=== PATIENT | male | born 1955 | race American Indian/Alaskan Native ===

== ENCOUNTER 2017-12-15 11:04 | Emergency (ER) | payer OTHER ==
--- NOTE | 2017-12-15 11:48 | Cat Scan Report ---
CT HEAD WITHOUT CONTRAST: 12/15/17 11:04:00 CLINICAL: Left arm weakness and facial droop. Fell 2 days ago. TECHNIQUE: 2.5-mm noncontrast scans. COMPARISON:10/19/13 FINDINGS: An oval slightly irregularly shaped cystic mass has developed in the right frontal lobe since the previous exam. It measures 7.5 x 6.0 x 6.1 cm. There is mass effect with shift of the midline. The anterior falx is shifted by 5 mm the mass extends across the midline by approximately 2.4 cm. It has a smooth thin wall and measures approximately 13 Hounsfield units in density. There is mass effect on the adjacent brain with minimal adjacent vasogenic edema. Prominent bilateral lesser parietal and occipital lobe white matter hypodensities and enlargement of the occipital lobes and lateral ventricle bodies. The frontal horns are small. The temporal horns are mildly dilated and the fourth ventricle is normal size. No evidence of hemorrhage. The sinuses are clear. Normal orbits and soft tissues. The calvarium and skull base are intact. No fracture. IMPRESSION: 1. A 7.5 cm intra-axial cystic mass of the right frontal lobe which is new compared to the previous exam. The differential includes cystic tumor, arachnoid cyst and less likely remote hematoma or abscess. The pattern is not typical of old ischemia suppose it would be a consideration. 2. Significant mass effect upon the right frontal lobe and significant displacement of midline brain structures in the right frontal lobe mass. 3. Recommend MRI brain without and with contrast for further evaluation. 4. No evidence of traumatic injury.
[2017-12-15 12:18] LABS: Basophils # (Auto) 0.1 K/mm3 (0.0-0.1); Basophils % (Auto) 1.3 % (0.0-1.8); Eosinophils # (Auto) 0.1 K/mm3 (0.0-0.4); Eosinophils % (Auto) 1.3 % (0.0-4.3); Hemoglobin 13.2 gm/dl (11.8-15.2); Lymphocytes # (Auto) 1.8 K/mm3 (1.2-5.4); Lymphocytes % (Auto) 23.6 % (13.4-35.0); Mean Corpuscular HGB Conc 32 % (32-34); Mean Corpuscular Hemoglobin 28 pg (28-32); Mean Corpuscular Volume 86 fl (84-94); Monocytes # (Auto) 0.7 K/mm3 (0.0-0.8); Monocytes % (Auto) 8.8 % (0.0-7.3); Platelet Count 402 K/mm3 (140-440); Red Blood Count 4.77 M/mm3 (3.65-5.03); Red Cell Distribution Width 17.6 % (13.2-15.2)
[2017-12-15 12:29] LABS: INR 0.92 (0.87-1.13)
[2017-12-15 12:30] LABS: Partial Thromboplastin Time 33.1 Sec. (24.2-36.6)
[2017-12-15 13:12] LABS: BUN/Creatinine Ratio 20; Blood Urea Nitrogen 16 mg/dL (9-20); Calcium 9.1 mg/dL (8.4-10.2); Hemolysis Index 1
--- NOTE | 2017-12-15 13:16 | Emergency Department Report ---
HPI - General Chief Complaint: Neuro Symptoms/Deficit Time Seen by Provider: 12/15/17 13:00 - HPI HPI: Husain 26 The patient is a 62-year-old male presenting with a chief complaint of left- sided weakness. Family states the patient suffered a fall 3-4 days ago and was noted to have slurred speech yesterday and this morning. One another family member came to check on the patient is morning she noticed that he was not moving his left side as well as the right. There is no history of dysphagia. Patient denies headache nausea or vomiting. Location: [See above] Duration: [See above] Quality: [See above] Severity: [See above] Modifying factors: [see above] Context: [see above] Mode of transportation: [not driving] ED Past Medical Hx - Past Medical History Hx Hypertension: Yes (Does not take meds., per EMS.) Hx of Cancer: Yes (colon CA (2014), lung mass (2013)) Hx Seizures: Yes Additional medical history: Lung mass - Surgical History Past Surgical History?: No Additional Surgical History: Lung mass removal. Partial colectomy - Family History Family history: no significant - Social History Smoking Status: Current Every Day Smoker (1 pack per day) Substance Use Type: Alcohol (every other day) - Medications Home Medications: Home Medications Medication Instructions Recorded Confirmed Last Taken Type Potassium Chloride [K-Dur] 20 meq PO QDAY #20 tablet 10/19/13 Unknown Rx levETIRAcetam [Keppra] 500 mg PO BID #60 tablet 10/19/13 Unknown Rx ED Review of Systems ROS: Stated complaint: R/O CVA Other details as noted in HPI Constitutional: weakness Gastrointestinal: denies: nausea, vomiting Neurological: weakness. denies: headache, numbness Physical Exam - Physical Exam Vital Signs: Vital Signs 12/15/17 11:08 Temperature 98.6 F Pulse Rate 90 Respiratory 16 Rate Blood Pressure 115/83 O2 Sat by Pulse 89 Oximetry Vital Signs 12/15/17 12/15/17 11:08 13:13 Temperature 98.6 F Pulse Rate 90 65 Respiratory 16 18 Rate Blood Pressure 115/83 Blood Pressure 132/88 [Left] O2 Sat by Pulse 89 93 Oximetry Physical Exam: GENERAL: The patient is well-developed well-nourished male lying on stretcher not appearing to be in acute distress. HEENT: Normocephalic. Atraumatic. Extraocular motions are intact. Patient has moist mucous membranes. NECK: Supple. Trachea midline CHEST/LUNGS: Clear to auscultation. There is no respiratory distress noted. HEART/CARDIOVASCULAR: Regular. There is no tachycardia. There is no gallop rub or murmur. ABDOMEN: Abdomen is soft, nontender. Patient has normal bowel sounds. There is no abdominal distention. SKIN: There is no rash. There is no edema. There is no diaphoresis. NEURO: The patient is awake, alert, and oriented. The patient is cooperative. Cranial nerves II through XII grossly intact with the exception of tongue deviating to the right. The patient has normal speech. Slight left pronator drift. Patient exhibits some difficulty raising left lower extremity up off the bed. Normal sensation throughout MUSCULOSKELETAL: There is no evidence of acute injury. NIHSS= 2 LOC a. Alert= 0 Not alert but arousable to minor stimuli=1 Not alert requires repeated or strong stimuli to move= 2 Responds only reflex motor or unresponsive=3 b. asks month and age answers both correctly= 0 answers one correctly= 1 answers neither correctly= 2 Best Gaze normal= 0 abnormal in one or both but forced deviation or total paresis absent= 1 forced deviation or total gaze paresis= 2 Visual no visual loss= 0 partial hemianopia= 1 complete hemianopia= 2 bilateral hemianopia= 3 Facial Palsy normal= 0 minor paralysis= 1 partial paralysis= 2 complete paralysis= 3 Motor Arm no drift= 0 (+)drift before 10 secs but doesnt hit bed= 1 some effort against gravity= 2 no effort against gravity= 3 no movement= 4 Motor leg no drift= 0 (+)drift before 5 secs but doesnt hit bed= 1 drifts to bed before 5 secs= 2 no effort against gravity= 3 no movement= 4 Limb ataxia absent=0 present in one limb= 1 present in two limbs= 2 Sensory normal= 0 mild sensory loss= 1 severe (unaware of being touched)= 2 Best language mild/some loss of fluency= 1 severe= 2 mute= 3 Dysarthria normal= 0 slurs some words= 1 severe/unintelligible= 2 Extinction and Inattention no abnormality= 0 visual, tactile, auditory or personal inattention= 1 profound (doesnt recognize own hand or orients to only one side= 2 ED Course Vital Signs 12/15/17 11:08 Temperature 98.6 F Pulse Rate 90 Respiratory 16 Rate Blood Pressure 115/83 O2 Sat by Pulse 89 Oximetry - Consultations Consultation #1: 12/15/17 13:17 [facility] transfer line called-states there are no neuro beds available Consultation #2: 12/15/17 13:17 [facility] transfer line called 12/15/17 13:33 Case discussed with [facility] neurosurgeon Dr. Quarles- will accept patient in transfer. Recommends giving Keppra 1 g IV and Decadron 6 mg IV ED Medical Decision Making - Lab Data Result diagrams: 12/15/17 11:58 12/15/17 11:58 Laboratory Tests 12/15/17 12/15/17 12/15/17 11:12 11:58 11:58 WBC 7.5 RBC 4.77 Hgb 13.2 Hct 41.0 MCV 86 MCH 28 MCHC 32 RDW 17.6 H Plt Count 402 Lymph % (Auto) 23.6 Cherry % (Auto) 8.8 H Eos % (Auto) 1.3 Baso % (Auto) 1.3 Lymph # 1.8 Cherry # 0.7 Eos # 0.1 Baso # 0.1 Seg Neutrophils % 65.0 Seg Neutrophils # 4.9 PT 12.8 INR 0.92 APTT 33.1 Thrombin Time Sodium Potassium Chloride Carbon Dioxide Anion Gap BUN Creatinine Estimated GFR BUN/Creatinine Ratio Glucose POC Glucose 78 Calcium Troponin T 12/15/17 12/15/17 11:58 11:58 WBC RBC Hgb Hct MCV MCH MCHC RDW Plt Count Lymph % (Auto) Cherry % (Auto) Eos % (Auto) Baso % (Auto) Lymph # Cherry # Eos # Baso # Seg Neutrophils % Seg Neutrophils # PT INR APTT Thrombin Time 15.8 Sodium 142 Potassium 3.7 Chloride 101.2 Carbon Dioxide 25 Anion Gap 20 BUN 16 Creatinine 0.8 Estimated GFR > 60 BUN/Creatinine Ratio 20 Glucose 124 H POC Glucose Calcium 9.1 Troponin T < 0.010 - Radiology Data Radiology results: report reviewed (CT head), image reviewed (CT head) CT head (read by radiologist)-a 7.5 cm intra-axial cystic mass of the right frontal lobe which is new compared to the previous exam. The differential includes cystic tumor, arachnoid cyst less likely remote hematoma or abscess. The pattern is not typical of old ischemia suppose it would be a consideration. Significant mass effect upon the right frontal lobe and significant displacement of midline brain structures in the right frontal lobe mass. Recommend MRI brain without and with contrast for further evaluation. No evidence of dramatic injury. - Differential Diagnosis brain mass, CVA Critical care attestation.: If time is entered above; I have spent that time in minutes in the direct care of this critically ill patient, excluding procedure time. ED Disposition Clinical Impression: Brain mass, Left-sided weakness Disposition: DC/TX-70 ANOTHER TYPE HLTHCARE Is pt being admited?: No Does the pt Need Aspirin: No Condition: Serious Time of Disposition: 13:36 (awaiting transport)
[2017-12-15] MEDS ORDERED: KEPPRA 1,000 MG/NS 0.75% 100ML 1,000 MG/100 ML BAG IV ONE (13:32)
[2017-12-15] MEDS ORDERED: DECADRON IV ONE (13:32)
[2017-12-15 19:08] VITALS: BP 150/94
== END 2017-12-15 19:00 | disposition other institution (70) ==
LOC: ED 11:04
DX: G93.9 Disorder of brain, unspecified (principal); M62.81 Muscle weakness (generalized); I10 Essential (primary) hypertension; R56.9 Unspecified convulsions; Z85.038 Personal history of other malignant neoplasm of large intestine; F17.210 Nicotine dependence, cigarettes, uncomplicated
CPT/HCPCS: 36415; 70450; 80048; 82962; 84484; 85025; 85610; 85670; 85730; 93005; 93010; 96374; 96375; 99285; J1100; J1953

== ENCOUNTER 2019-03-24 16:15 | Emergency (ER) | payer MEDICARE ==
--- NOTE | 2019-03-24 17:10 | Emergency Department Report ---
Blank Doc - Documentation Documentation: This is a 63-year-old male that presents with right shoulder pain. This initial assessment/diagnostic orders/clinical plan/treatment(s) is/are subject to change based on patient's health status, clinical progression and re- assessment by fellow clinical providers in the ED. Further treatment and workup at subsequent clinical providers discretion. Patient/guardians urged not to elope from the ED as their condition may be serious if not clinically assessed and managed. Initial orders include: 1- Patient sent to [facility] for further evaluation and treatment 2- xray
[2019-03-24 17:14] VITALS: BP 114/83
[2019-03-24] MEDS ORDERED: BOOSTRIX IM ONE (19:37)
--- NOTE | 2019-03-24 20:26 | XRay Report ---
Right elbow 3 views INDICATION: Right elbow pain following injury IMPRESSION: Tiny right elbow effusion. There is a large amount of swelling along the posterior soft t issues of the elbow overlying the olecranon and the posterior right arm. No underlying osteomyelitis is identified. Signer Name: Jose Rafael Manzanares MD Signed: 03/24/2019 8:22 PM Workstation Name: [id number]
--- NOTE | 2019-03-24 21:39 | Emergency Department Report ---
ED Extremity Problem HPI - General Chief complaint: Extremity Injury, Upper Stated complaint: SPIDER BITE ON R ARM/FALL/R SHOULDER PAIN Time Seen by Provider: 03/24/19 17:10 Source: patient Mode of arrival: Ambulatory Limitations: No Limitations - History of Present Illness Initial comments: Patient is a 63-year-old male presents to the emergency room with complaints of right elbow pain and edema that began 2 days ago. He states he believes he got bit by something. He states he was itching and scratching and has seen a small amount of drainage. He did not see or feel anything bite him. He does state he sits on a patio outside frequently. He denies any fever. Patient is unsure of his last tetanus immunization. He has a past medical history of colon cancer and seizures and high blood pressure. Denies any allergies to medications. - Related Data Previous Rx's Medication Instructions Recorded Last Taken Type Potassium Chloride [K-Dur] 20 meq PO QDAY #20 tablet 10/19/13 Unknown Rx levETIRAcetam [Keppra] 500 mg PO BID #60 tablet 10/19/13 Unknown Rx Clindamycin [Clindamycin CAP] 450 mg PO TID 7 Days #63 capsule 03/24/19 Unknown Rx traMADol [Ultram 50 MG tab] 50 mg PO Q6HR PRN #10 tablet 03/24/19 Unknown Rx Allergies Allergy/AdvReac Type Severity Reaction Status Date / Time No Known Allergies Allergy Verified 03/24/19 16:22 ED Review of Systems ROS: Stated complaint: SPIDER BITE ON R ARM/FALL/R SHOULDER PAIN Other details as noted in HPI Comment: All other systems reviewed and negative ED Past Medical Hx - Past Medical History Hx Hypertension: Yes Hx CVA: No Hx Diabetes: No Hx Renal Disease: No Hx Arthritis: No Hx Seizures: Yes Hx Asthma: No Additional medical history: Lung CA, Colon Ca, Brain tumor - Surgical History Hx Pacemaker: No Additional Surgical History: Lung mass removal. Partial colectomy - Social History Smoking Status: Light Tobacco Smoker - Medications Home Medications: Home Medications Medication Instructions Recorded Confirmed Last Taken Type Potassium Chloride [K-Dur] 20 meq PO QDAY #20 tablet 10/19/13 Unknown Rx levETIRAcetam [Keppra] 500 mg PO BID #60 tablet 10/19/13 Unknown Rx Clindamycin [Clindamycin CAP] 450 mg PO TID 7 Days #63 capsule 03/24/19 Unknown Rx traMADol [Ultram 50 MG tab] 50 mg PO Q6HR PRN #10 tablet 03/24/19 Unknown Rx ED Physical Exam - General Limitations: No Limitations General appearance: alert, in no apparent distress - Head Head exam: Present: atraumatic, normocephalic - Eye Eye exam: Present: normal appearance - ENT ENT exam: Present: mucous membranes moist - Extremities Exam Extremities exam: Present: other (edema present to the right elbow and forearm, no increased warmth, erythema present, two abrasions present with small amount of drainage, slightly decreased ROM of the right elbow due to pain/edema, 2+ radial pulse, sensation intact) - Neurological Exam Neurological exam: Present: alert, oriented X3 - Psychiatric Psychiatric exam: Present: normal affect, normal mood - Skin Skin exam: Present: warm, dry, intact ED Course Vital Signs 03/24/19 03/24/19 17:10 23:27 Temperature 98.2 F Pulse Rate 104 H 84 Respiratory 18 17 Rate Blood Pressure 114/83 O2 Sat by Pulse 98 99 Oximetry - Reevaluation(s) Reevaluation #2: 03/24/19 22:[address] Ortega, orthopedic who believes unlikely to be septic joint with normal WBC and afebrile, advised to have pt follow up in clinic and to splint. pt is already in arm splint due to prior shoulder injury. - Consultations Consultation #1: 03/24/19 22:[address] Barrios regarding pt and discussed admission for IV abx for cellulitis, she agreed with admission ED Medical Decision Making - Lab Data Result diagrams: 03/24/19 21:02 03/24/19 21:02 - Radiology Data Radiology results: report reviewed Fluoro Time In Minutes: Right elbow 3 views INDICATION: Right elbow pain following injury IMPRESSION: Tiny right elbow effusion. There is a large amount of swelling along the posterior soft tissues of the elbow overlying the olecranon and the posterior right arm. No underlying osteomyelitis is identified. Signer Name: Jose Rafael Manzanares MD Signed: 03/24/2019 8:22 PM Workstation Name: [id number] Transcribed By: Dictated By: Jose Rafael Manzanares MD Electronically Authenticated By: Jose Rafael Manzanares MD Signed Date/Time: 03/24/192021 - Medical Decision Making Patient is a 63-year-old male presents to the emergency room with complaints of right elbow pain and edema that began 2 days ago. He states he believes he got bit by something. He states he was itching and scratching and has seen a small amount of drainage. He did not see or feel anything bite him. He does state he sits on a patio outside frequently. He denies any fever. Patient is unsure of his last tetanus immunization. He has a past medical history of colon cancer and seizures and high blood pressure. Denies any allergies to medications. pt with mild tachycardia, afebrile. WBC is normal. lactic is 2.5. on exam: edema present to the right elbow and forearm, no increased warmth, erythema present, two abrasions present with small amount of drainage, slightly decreased ROM of the right elbow due to pain/edema, 2+ radial pulse, sensation intact. XR of the right elbow shows Tiny right elbow effusion. There is a large amount of swelling along the posterior soft tissues of the elbow overlying the olecranon and the posterior right arm. No underlying osteomyelitis is identified. spoke with Dr. Ortega, orthopedic who believes unlikely to be septic joint with normal WBC and afebrile, advised to have pt follow up in clinic and to splint. pt is already in arm splint due to prior shoulder injury. discussed with Dr. Barrios, recommended admission for IV abx for cellulitis. pt given IV clindamycin while in the ED. discussed with pt and his daughter that he would need to be admitted for IV abx. pt wants to sign out AMA and does not want to be admitted to the hospital. discussed with pt and family the risks of worsening infection, , loss of limb, loss of quality of life. pt given prescription for clindamycin and pain medication. advised to please follow up with a primary care doctor and an orthopedic doctor in the next 24 hours. please take medication as prescribed. It is very important that you follow-up. return to the emergency room immediately for any new or worsening symptoms. you are leaving today against medical advice it is very important you seek emergency medical help if infection worsens or not resolving or any other new or worsening symptoms, serious infection could lead to , loss of limb, or loss of quality of life. The patient is alert and oriented 3 the patient exhibits decision-making capacity. The patient is free from distracting injury. The risk of leaving without complete medical examination, and AGAINST MEDICAL ADVICE, were explained to the patient, and they included , disability, paralysis, permanent loss of quality of life. The patient verbalized understanding to these, and was able to articulate these risks in their own words, and this conversation is witnessed by MARIS Garcia. - Differential Diagnosis cellulitis, septic arthritis, abscess, insect bite Critical care attestation.: If time is entered above; I have spent that time in minutes in the direct care of this critically ill patient, excluding procedure time. ED Disposition Clinical Impression: Right elbow pain, Abrasion Cellulitis Qualifiers: Site of cellulitis: extremity Site of cellulitis of extremity: upper extremity Laterality: right Qualified Code(s): L03.113 - Cellulitis of right upper limb Disposition: DC-07 LEFT AGAINST MED ADVICE Is pt being admited?: No Does the pt Need Aspirin: No Condition: Stable Instructions: Cellulitis (ED) Additional Instructions: Please follow up with a primary care doctor and an orthopedic doctor in the next 24 hours. please take medication as prescribed. It is very important that you follow-up. return to the emergency room immediately for any new or worsening symptoms. you are leaving today against medical advice it is very important you seek emergency medical help if infection worsens or not resolving or any other new or worsening symptoms, serious infection could lead to , loss of limb, or loss of quality of life. Prescriptions: Clindamycin [Clindamycin CAP] 450 mg PO TID 7 Days #63 capsule traMADol [Ultram 50 MG tab] 50 mg PO Q6HR PRN #10 tablet PRN Reason: Pain Referrals: MARLO ROBBINS MD [Primary Care Provider] - [facility] [Outside] - NUBIA ANGELA ORTEGA MD [Staff Physician] - [facility] Forms: AMA Form Time of Disposition: 23:04 Print Language: SOUTH SUDAN[place]
[2019-03-24 21:44] LABS: BUN/Creatinine Ratio 19; Blood Urea Nitrogen 13 mg/dL (9-20); Calcium 9.3 mg/dL (8.4-10.2); Hemolysis Index 13
[2019-03-24 21:52] LABS: Hemoglobin 13.7 gm/dl (11.8-15.2); Mean Corpuscular HGB Conc 32 % (32-34); Mean Corpuscular Volume 82 fl (84-94); Platelet Count 314 K/mm3 (140-440); Red Blood Count 5.23 M/mm3 (3.65-5.03)
[2019-03-24 21:59] LABS: Red Cell Distribution Width 24.2 % (13.2-15.2)
[2019-03-24 22:01] LABS: Basophils % (Auto) 1.5 % (0.0-1.8); Eosinophils % (Auto) 1.8 % (0.0-4.3); Lymphocytes % (Auto) 31.9 % (13.4-35.0); Monocytes % (Auto) 9.5 % (0.0-7.3)
[2019-03-24 22:02] LABS: Basophils # (Auto) 0.1 K/mm3 (0.0-0.1); Eosinophils # (Auto) 0.1 K/mm3 (0.0-0.4); Lymphocytes # (Auto) 1.9 K/mm3 (1.2-5.4); Monocytes # (Auto) 0.6 K/mm3 (0.0-0.8)
[2019-03-24] MEDS ORDERED: CLEOCIN 600 MG/50 mL 600 MG/50 ML BAG IV ONE (22:19)
== END 2019-03-24 23:27 | disposition left against medical advice (07) ==
LOC: ED 16:15
DX: S50.311A Abrasion of right elbow, initial encounter (principal); L03.113 Cellulitis of right upper limb; I10 Essential (primary) hypertension; F17.200 Nicotine dependence, unspecified, uncomplicated; Z85.038 Personal history of other malignant neoplasm of large intestine; Z85.118 Personal history of other malignant neoplasm of bronchus and lung; Z85.841 Personal history of malignant neoplasm of brain; X58.XXXA Exposure to other specified factors, initial encounter; Y93.89 Activity, other specified; Y92.89 Other specified places as the place of occurrence of the external cause; Y99.8 Other external cause status
CPT/HCPCS: 36415; 80048; 82140; 85025; 90471; 90715; 96365